=== PATIENT | female | born 1975 | race Caucasian/White ===

== ENCOUNTER 2019-11-26 17:15 | Emergency (ER) | payer OTHER, SELFPAY ==
[2019-11-26] VITALS (11 sets, daily range): BP systolic 114–148; BP diastolic 65–84; PULSE 55–68; RESP 10–19; TEMP 36.8; O2SAT 97–100
--- NOTE | ~2019-11-26 | XR_ITS ---
EXAMINATION: XR chest 1V portable 11/26/2019 18:13 INDICATION: Chest pain PROCEDURE: AP portable chest COMPARISON: No prior studies for comparison. FINDINGS: The lungs are clear. The cardiomediastinal silhouette is within normal limits. There are no pleural effusions. There is no pneumothorax suspected. IMPRESSION: 1: NO ACUTE CARDIOPULMONARY DISEASE. Reviewed, dictated and finalized at location A.
--- NOTE | 2019-11-26 17:32 | PC.NURSE ---
Pt states she has chest pain that is her whole chest and upper back x 1 wk. Pt states she has nausea and trouble taking a deep breath. Pt is A&Ox4. Pt appears in NAD. Pt has call light in reach
--- NOTE | 2019-11-26 17:49 | ECG_ITS ---
Measurements Intervals [place] Rate: 66 P: 66 [place]: 174 QRS: -37 QRSD: 121 T: 54 QT: 402 QTc: 424 Interpretive Statements SINUS RHYTHM LEFT AXIS DEVIATION RIGHT BUNDLE BRANCH BLOCK CONSIDER INFERIOR INFARCT, AGE INDETERMINATE BASELINE ARTIFACT- V6 ABNORMAL ECG Electronically Signed On 11-27-2019 7:43:35 CDT by Luis Miguel Ambriz D.O.
[2019-11-26 18:04] LABS: Basophils Percent Auto 0.4 % (0.2-1.2); Eosinophils Absolute Auto 0.2 K/mm3 (0-0.3); Eosinophils Percent Auto 3.1 % (0-4.4); Hematocrit 40.5 % (37.0-47.0); Hemoglobin 13.2 g/dL (12.0-15.0); Immature Granulocyte Absolute 0.01 K/mm3 (0.00-0.031); Immature Granulocyte Percent A 0.2 % (0-0.5); Lymphocytes Absolute Auto 1.89 K/mm3 (0.9-3.2); Lymphocytes Percent Auto 34.1 % (18.3-44.2); Mean Corpuscular HGB Conc 32.6 g/dl (32-36); Mean Corpuscular Hemoglobin 29.1 pg (26-34); Mean Corpuscular Volume 89.2 fl (80-100); Mean Platelet Volume 10.6 fl (7.4-10.4); Monocytes Absolute Auto 0.6 K/mm3 (0.1-0.6); Monocytes Percent Auto 10.6 % (2.6-8.5); Neutrophils Absolute Auto 2.9 K/mm3 (1.3-6.7); Neutrophils Percent Auto 51.6 % (45.5-73.1); Platelet Count Result 212 k/mm3 (150-375); Red Blood Count 4.54 M/mm3 (4.2-5.4); Red Cell Distribution Width 13.1 % (11.5-14.5); White Blood Count 5.5 K/mm3 (4.5-10.0)
[2019-11-26 18:15] LABS: Prothrombin Time 13.3 Seconds (11.1-14.7)
[2019-11-26 18:16] LABS: Partial Thromboplastin Time 32.6 SECONDS (22.3-36.8)
[2019-11-26] MEDS: ASPIRIN 81 MG CHEWABLE TABLET 324 MG PO (18:16)
[2019-11-26 18:20] LABS: Blood Urea Nitrogen 10 mg/dL (7-17); Calcium 8.6 mg/dL (8.4-10.2); Carbon Dioxide 30 mmol/L (22-30); Chloride 103 mmol/L (98-107); Estimated CRCL calculation 65 ml/min; Estimated Glomerular Filt Rate > 60; Glucose 73 mg/dL (65-105); Potassium 3.6 mmol/L (3.4-5.0); Sodium 139 mmol/L (137-145)
[2019-11-26 18:30] LABS: Troponin I < 0.012 ng/mL (0.000-0.034)
[2019-11-26 18:32] LABS: D Dimer 0.27 ug/mL (<0.48)
--- NOTE | 2019-11-26 18:36 | ED.CHESTPAIN ---
HPI - Chest Pain General Chief Complaint: Chest Pain Stated Complaint: chest pain x 1 week Time Seen by Provider: 11/26/19 17:31 Source: patient Mode of arrival: ambulatory Limitations: no limitations History of Present Illness HPI narrative: 44 yo female who presents for evaluation of diffuse chest pressure. Patient describes constant chest pressure that radiates to right anterior chest when she breaths or moves. She has come to ER today because she states her pain worsened this morning. . She denies fever, chills, nausea, vomiting or sob. She has not tried any medication for her pain. Onset (ago): week(s) Timing of current episode: constant Severity: moderate Related Data Allergies Allergy/AdvReac Type Severity Reaction Status Date / Time ciprofloxacin Allergy Unknown Anaphylactic Verified 11/26/19 17:26 Shock Quinolones Allergy Unknown Anaphylactic Verified 11/26/19 17:26 Shock Review of Systems Review of Systems: Narrative: CONSTITUTIONAL: Denies fever, chills, or sweats. EYES: Denies visual changes, redness, or discharge. ENT: Denies rhinorrhea, congestion, sore throat, or otalgia. CARDIOVASCULAR: Denies , palpitations, or edema. RESPIRATORY: Denies cough or dyspnea. GASTROINTESTINAL: Denies abdominal pain, nausea, vomiting, or diarrhea. GENITOURINARY: Denies dysuria or hematuria. SKIN: Denies rash or itching. MUSCULOSKELETAL: Denies back pain, joint pain, or myalgia. NEUROLOGIC: Denies headache, numbness, or weakness. PSYCHIATRIC: Denies anxiety or depression. PMFSH Past Medical History Medical History (Updated 11/26/19 @ 21:50 by Sandra Caputo MD) ADHD Healthy female Surgical History Surgical History No history of previous surgery Social History Social History (Updated 11/26/19 @ 18:44 by Sandra Caputo MD) Smoking status: Never smoker Alcohol intake: never Gender identity (if verbalized by the patient): Female Exam Narrative: Exam Narrative: GENERAL: Well-appearing, well-nourished, and in no acute distress. HEAD: Normocephalic, atraumatic THROAT:Mucous membranes moist, NECK: Supple, without lymphadenopathy or mass RESPIRATORY: No respiratory distress, Airway patent, Respirations non-labored, Clear to auscultation without rales, rhonchi or wheeze HEART: Regular rate and rhythm. No murmur heard. Normal peripheral pulses. ABDOMEN: Soft, nontender, nondistended, normal active bowel sounds. No masses. No rebound or guarding, No organomegaly. EXTREMITIES: No edema, normal strength with full range of motion. SKIN: Warm, dry, normal color without rash NEURO: Alert and oriented x3. CN 2-12 grossly intact. No focal deficits. PSYCH: Normal mood and affect. Course Reevaluation(s) Reevaluation #1: Patient presented with atypical pain. She reports she feels better. She has negative troponin x 2 and negative d dimer. Her pain is likely GI. Date: 11/26/19 Time: 21:46 Vital Signs Vital signs: Vital Signs Temperature 98.2 F 11/26/19 17:21 Pulse Rate 66 11/26/19 17:21 Respiratory Rate 13 11/26/19 17:21 Blood Pressure 148/84 H 11/26/19 17:21 Pulse Oximetry 100 11/26/19 17:21 Temperature 98.2 F 11/26/19 17:21 Pulse Rate 62 11/26/19 22:01 Respiratory Rate 16 11/26/19 22:01 Blood Pressure 120/72 11/26/19 22:01 Pulse Oximetry 99 11/26/19 22:01 MDM - Chest Pain Differential Diagnosis Differential diagnosis: Likely stable angina, atypical chest pain, costochondritis, chest pain and other (gerd) Lab Data Attestation: I reviewed the patient's lab results. Result diagrams: 11/26/19 17:58 11/26/19 17:58 Labs: Lab Results 11/26/19 11/26/19 11/26/19 Range/Units 17:58 17:58 17:58 WBC 5.5 (4.5-10.0) K/mm3 RBC 4.54 (4.2-5.4) M/mm3 Hgb 13.2 (12.0-15.0) g/dL Hct 40.5 (37.0-47.0) % MCV 89.2 (80-100) fl MCH 29.1 (26-34
[2019-11-26] MEDS: NITROGLYCERIN SL 0.4 MG TABLET SUBLINGUAL (18:46)
--- NOTE | 2019-11-26 19:13 | PC.NURSE ---
Assumed care of patient from LAVELLE Kwan. Patient resting in stretcher in [facility], [facility], call light within reach.
--- NOTE | 2019-11-26 19:16 | PC.NURSE ---
Patient ambulatory to restroom with a steady gait at this time.
[2019-11-26] MEDS: KETOROLAC 30 MG/ML VIAL (*BKC) IV PUSH (19:56)
[2019-11-26 21:08] LABS: Troponin I < 0.012 ng/mL (0.000-0.034)
== END 2019-11-26 22:02 | disposition home or self-care (01) ==
PROVIDERS: Emergency Provider General Practice
DX: R07.89 Other chest pain (principal); I45.10 Unspecified right bundle-branch block; R94.31 Abnormal electrocardiogram [ECG] [EKG]
CPT/HCPCS: 36415; 71045; 80048; 84484; 85025; 85380; 85610; 85730; 93005; 96374; 99284; A9270; J1885

== ENCOUNTER 2022-03-20 12:34 | Emergency (ER) | payer OTHER, SELFPAY ==
--- NOTE | ~2022-03-20 | XR_ITS ---
EXAMINATION: XR chest 2V DATE: 03/20/2022 13:19 INDICATION: Shortness of breath. Bloating. TECHNIQUE: Frontal and lateral views of the chest were obtained. COMPARISON: Chest single view 11/26/2019 FINDINGS: There is no pneumonia, pleural effusion, pneumothorax. The heart size is normal. IMPRESSION: 1. No acute cardiopulmonary disease. Reviewed, dictated and finalized at location A.
[2022-03-20 12:37] VITALS: BP 146/84; PULSE 75; RESP 18; TEMP 37.1; O2SAT 100
--- NOTE | 2022-03-20 12:42 | ECG_ITS ---
Measurements Intervals [place] Rate: 84 P: 60 [place]: 128 QRS: -3 QRSD: 99 T: 61 QT: 360 QTc: 427 Interpretive Statements SINUS RHYTHM INCOMPLETE RIGHT VENTRICULAR CONDUCTION DELAY BORDERLINE ECG COMPARED TO ECG 11/26/2019 17:22:10 CRITERIA FOR RIGHT BUNDLE-BRANCH BLOCK AND INFERIOR INFARCTION ON APPRECIATED Electronically Signed On 03-20-2022 13:09:27 CDT by Leroy Fry M.D.
[2022-03-20 13:03] LABS: Basophils Percent Auto 0.5 % (0.2-1.2); Eosinophils Absolute Auto 0.1 K/mm3 (0-0.3); Eosinophils Percent Auto 1.5 % (0-4.4); Hematocrit 43.2 % (37.0-47.0); Hemoglobin 14.5 g/dL (12.0-15.0); Immature Granulocyte Absolute 0.01 K/mm3 (0.00-0.031); Immature Granulocyte Percent A 0.2 % (0-0.5); Lymphocytes Absolute Auto 1.56 K/mm3 (0.9-3.2); Lymphocytes Percent Auto 26.9 % (18.3-44.2); Mean Corpuscular HGB Conc 33.6 g/dl (32-36); Mean Corpuscular Hemoglobin 29.5 pg (26-34); Mean Corpuscular Volume 87.8 fl (80-100); Mean Platelet Volume 10.1 fl (7.4-10.4); Monocytes Absolute Auto 0.6 K/mm3 (0.1-0.6); Monocytes Percent Auto 9.5 % (2.6-8.5); Neutrophils Absolute Auto 3.6 K/mm3 (1.3-6.7); Neutrophils Percent Auto 61.4 % (45.5-73.1); Platelet Count Result 279 k/mm3 (150-375); Red Blood Count 4.92 M/mm3 (4.2-5.4); Red Cell Distribution Width 12.4 % (11.5-14.5); White Blood Count 5.8 K/mm3 (4.5-10.0)
[2022-03-20 13:13] LABS: Alanine Aminotransferase 15 U/L (6-35); Albumin Level 4.6 g/dL (3.5-5.1); Alkaline Phosphatase 58 U/L (38-126); Anion Gap 12 mmol/L (8-16); Aspartate Amino Transferase 25 U/L (14-36); Bilirubin,Total 0.5 mg/dL (0.2-1.3); Blood Urea Nitrogen 18 mg/dL (7-17); Calcium 8.8 mg/dL (8.4-10.2); Carbon Dioxide 23 mmol/L (22-30); Chloride 104 mmol/L (98-107); Estimated CRCL calculation 53 ml/min; Estimated Glomerular Filt Rate 53; Glucose 88 mg/dL (65-110); Potassium 4.2 mmol/L (3.4-5.0); Sodium 139 mmol/L (137-145)
[2022-03-20 16:08] VITALS: BP 117/68; PULSE 73; TEMP 37.1; O2SAT 100
[2022-03-20] MEDS: BELLADONNA ALK/PHENOB ELIX 10 ML, MAG HYDROX/ALUMINUM HYD/SIMETH 30 ML, LIDOCAINE HCL 2... PO (19:43)
--- NOTE | 2022-03-20 20:04 | ED.GENADULT ---
HPI - General Adult General Chief complaint: Unspecified Stated complaint: shortness of breath x several days Time Seen by Provider: 03/20/22 19:08 History of Present Illness HPI narrative: Patient is a 46-year-old female who presents ER with epigastric fullness and shortness of breath. Reports she has had fullness in her epigastrium for about a month but is worse over the last couple days. Makes it feel like she has difficulty getting a full deep breath. No exertional fatigue. Denies fevers or chills or sweats. No chest pain or chest pressure. Denies nausea/vomiting. No poor taste in the back of her mouth. She has not tried any acid reflux medication. She is without constipation or diarrhea. Related Data Allergies Allergy/AdvReac Type Severity Reaction Status Date / Time ciprofloxacin Allergy Unknown Anaphylactic Verified 03/20/22 12:35 Shock Quinolones Allergy Unknown Anaphylactic Verified 03/20/22 12:35 Shock Review of Systems Review of Systems: All systems reviewed & are unremarkable except as noted in HPI and below Constitutional: Constitutional: Denies chills, Denies fatigue and Denies fever(s) ENT: Denies nasal congestion and Denies sore throat Cardiovascular: Cardiovascular: Denies chest pain, Denies rapid heart rate and Denies palpitations Respiratory: Respiratory: Denies cough and Denies dyspnea Gastrointestinal: Gastrointestinal: Denies abdominal pain, Denies belching, Reports bloating, Denies nausea and Denies vomiting Genitourinary: Genitourinary: Denies nocturia, Denies dysuria and Denies flank pain PMFSH Past Medical History Medical History (Updated 03/20/22 @ 21:48 by Tony Renner MD) ADHD Healthy female Surgical History Surgical History No history of previous surgery Social History Social History (Updated 11/26/19 @ 18:44 by Sandra Caputo MD) Smoking status: Never smoker Alcohol intake: never Gender identity (if verbalized by the patient): Female Exam Narrative: GENERAL: Well-appearing, well-nourished, and in no acute distress. HEAD: Normocephalic, atraumatic. EYES: PERRL and EOMI. CHEST: Clear to auscultation. No respiratory distress. HEART: Regular rate and rhythm. Normal peripheral pulses. ABDOMEN: Soft, nontender, nondistended. EXTREMITIES: Normal range of motion. No edema. SKIN: Warm, dry, no rash. NEURO: Alert and oriented x3. PSYCH: Normal mood and affect. Course Course Emergency Course: Patient resting comfortably. Informed of results. Will discharge on Protonix as patient may be suffering from reflux or GI ulcer. D-dimer negative. LFTs and lipase normal. Chest x-ray without infiltrate. Vital Signs Vital signs: Vital Signs Temperature 98.7 F 03/20/22 12:37 Pulse Rate 75 03/20/22 12:37 Respiratory Rate 18 03/20/22 12:37 Blood Pressure 146/84 H 03/20/22 12:37 Pulse Oximetry 100 03/20/22 12:37 Oxygen Delivery Room Air 03/20/22 12:37 Temperature 98.8 F 03/20/22 16:08 Pulse Rate 73 03/20/22 16:08 Respiratory Rate 18 03/20/22 12:37 Blood Pressure 117/68 03/20/22 16:08 Pulse Oximetry 100 03/20/22 16:08 Oxygen Delivery Room Air 03/20/22 12:37 Medical Decision Making Vital Signs Vital Signs: Vital Signs Temperature 98.7 F 03/20/22 12:37 Pulse Rate 75 03/20/22 12:37 Respiratory Rate 18 03/20/22 12:37 Blood Pressure 146/84 H 03/20/22 12:37 Pulse Oximetry 100 03/20/22 12:37 Oxygen Delivery Room Air 03/20/22 12:37 Temperature 98.8 F 03/20/22 16:08 Pulse Rate 73 03/20/22 16:08 Respiratory Rate 18 03/20/22 12:37 Blood Pressure 117/68 03/20/22 16:08 Pulse Oximetry 100 03/20/22 16:08 Oxygen Delivery Room Air 03/20/22 12:37 Lab Data Result diagrams: 03/20/22 12:47 03/20/22 12:47 Labs: Lab Results 03/20/22 03/20/22 03/20/22 Range/Units 12:47 12:47 20:03
[2022-03-20 20:31] LABS: Lipase 81 U/L (23-300)
[2022-03-20 20:46] LABS: D Dimer < 0.27 ug/mL (<0.48)
[2022-03-20 21:55] VITALS: BP 136/84; PULSE 65; RESP 18; O2SAT 98
== END 2022-03-20 21:55 | disposition home or self-care (01) ==
PROVIDERS: Emergency Medicine; Emergency Provider Emergency Medicine
DX: R10.13 Epigastric pain (principal); F90.9 Attention-deficit hyperactivity disorder, unspecified type
CPT/HCPCS: 36415; 71046; 80053; 81025; 83690; 85025; 85380; 93005; 99283; A9270

== ENCOUNTER 2022-03-21 23:53 | Emergency (ER) | payer OTHER, SELFPAY ==
--- NOTE | ~2022-03-21 | CT_ITS ---
EXAMINATION: CT abdomen pelvis w con DATE: 03/22/2022 01:55 INDICATION: Epigastric abdominal pain. TECHNIQUE: Computed tomography (CT) of the abdomen and pelvis was performed with 100 mL Omnipaque 350 intravenous contrast. Automated exposure control and iterative reconstruction technique were employe d. The dose-length product was 417.74 mGy-cm. COMPARISON: CT abdomen and pelvis 05/16/2006 FINDINGS: The visualized portions of the lung bases are clear without pneumonia or pleural effusion. The heart size is normal. No pericardial effusion. The liver, gallbladder, spleen, pancreas, adrenal glands, and kidneys are normal. There are no dilated loops of bowel. The appendix is normal. There ar e no pathologically enlarged lymph nodes. There is no free intraperitoneal fluid. There is mild lumba r spondylosis. IMPRESSION: 1. No etiology for the patient's symptoms. Reviewed, dictated and finalized at location A.
[2022-03-21 23:51] VITALS: BP 142/72; PULSE 93; RESP 20; TEMP 36.6; O2SAT 100
[2022-03-22] VITALS (10 sets, daily range): BP systolic 99–135; BP diastolic 47–82; PULSE 72–89; RESP 10–21; O2SAT 96–100
[2022-03-22] MEDS: LORazepam INJ (*CRX) 2 MG/ML VIAL 0.5 MG IV PUSH (00:14)
--- NOTE | 2022-03-22 00:15 | PC.NURSE ---
When attempting to draw lab work, pt questioned the lab work since she had lab work drawn when she was here the day prior. Dr. Renner will be made aware of the pts questions.
[2022-03-22 00:55] LABS: Basophils Percent Auto 0.3 % (0.2-1.2); Eosinophils Percent Auto 0.2 % (0-4.4); Hematocrit 40.1 % (37.0-47.0); Hemoglobin 13.5 g/dL (12.0-15.0); Immature Granulocyte Absolute 0.03 K/mm3 (0.00-0.031); Immature Granulocyte Percent A 0.3 % (0-0.5); Lymphocytes Absolute Auto 0.97 K/mm3 (0.9-3.2); Mean Corpuscular HGB Conc 33.7 g/dl (32-36); Mean Corpuscular Hemoglobin 29.7 pg (26-34); Mean Corpuscular Volume 88.3 fl (80-100); Mean Platelet Volume 9.9 fl (7.4-10.4); Monocytes Absolute Auto 0.6 K/mm3 (0.1-0.6); Monocytes Percent Auto 6.9 % (2.6-8.5); Neutrophils Absolute Auto 7.1 K/mm3 (1.3-6.7); Neutrophils Percent Auto 81.3 % (45.5-73.1); Platelet Count Result 225 k/mm3 (150-375); Red Blood Count 4.54 M/mm3 (4.2-5.4); White Blood Count 8.8 K/mm3 (4.5-10.0)
[2022-03-22 01:08] LABS: Alanine Aminotransferase 17 U/L (6-35); Albumin Level 4.4 g/dL (3.5-5.1); Alkaline Phosphatase 66 U/L (38-126); Anion Gap 13 mmol/L (8-16); Aspartate Amino Transferase 25 U/L (14-36); Bilirubin,Total 0.4 mg/dL (0.2-1.3); Blood Urea Nitrogen 17 mg/dL (7-17); Calcium 8.9 mg/dL (8.4-10.2); Carbon Dioxide 20 mmol/L (22-30); Chloride 103 mmol/L (98-107); Estimated CRCL calculation 63 ml/min; Estimated Glomerular Filt Rate > 60; Glucose 111 mg/dL (65-110); Lipase 105 U/L (23-300); Potassium 3.7 mmol/L (3.4-5.0); Sodium 136 mmol/L (137-145)
--- NOTE | 2022-03-22 01:23 | ED.ABDPAIN ---
HPI - Abdominal Pain General Chief Complaint: Abdominal Pain Stated Complaint: ABD CRAMPING Time Seen by Provider: 03/21/22 23:53 History of Present Illness HPI narrative: Patient is a 46-year-old female who presents ER with abdominal cramping. Epigastrium. Sudden onset tonight. Makes her feel full and have difficulty getting a full breath. Making her anxious. She is breathing fast and having spasm in her hands. No fevers or chills or sweats. Related Data Home Medications Medication Instructions Recorded Confirmed dextroamphetamine-amphetamine ER PO 03/22/22 20 mg 24hr capsule,extend release Allergies Allergy/AdvReac Type Severity Reaction Status Date / Time ciprofloxacin Allergy Unknown Anaphylactic Verified 03/22/22 00:34 Shock Quinolones Allergy Unknown Anaphylactic Verified 03/22/22 00:34 Shock Review of Systems Review of Systems: All systems reviewed & are unremarkable except as noted in HPI and below Constitutional: Constitutional: Denies chills and Denies fever(s) ENT: Denies nasal congestion and Denies sore throat Cardiovascular: Cardiovascular: Denies chest pain, Denies rapid heart rate and Denies radiating jaw, neck or arm pain Respiratory: Respiratory: Denies cough and Reports dyspnea Gastrointestinal: Gastrointestinal: Reports abdominal pain, Denies diarrhea, Denies nausea and Denies vomiting Psychiatric: Psychiatric: Reports anxiety PMFSH Past Medical History Medical History (Updated 03/22/22 @ 05:56 by Tony Renner MD) ADHD Healthy female Surgical History Surgical History No history of previous surgery Social History Social History (Updated 11/26/19 @ 18:44 by Sandra Caputo MD) Smoking status: Never smoker Alcohol intake: never Gender identity (if verbalized by the patient): Female Exam Narrative: GENERAL: Mucous-appearing, well-nourished, and in no acute distress. HEAD: Normocephalic, atraumatic. EYES: PERRL and EOMI. ENT: Mucous membranes moist. CHEST: Clear to auscultation. No respiratory distress. HEART: Regular rate and rhythm. Normal peripheral pulses. ABDOMEN: Soft, nontender, nondistended. EXTREMITIES: Normal range of motion. No edema. SKIN: Warm, dry, no rash. NEURO: Alert and oriented x3. PSYCH: Anxious mood and affect with normal thought content. Course Course Emergency Course: Patient resting comfortably. Informed of results. Symptoms improved with Ativan. Patient does have some mild to moderate stool on the CT scan. Discharge home with stool softener. Vital Signs Vital signs: Vital Signs Temperature 97.9 F 03/21/22 23:51 Pulse Rate 93 03/21/22 23:51 Respiratory Rate 20 03/21/22 23:51 Blood Pressure 142/72 H 03/21/22 23:51 Pulse Oximetry 100 03/21/22 23:51 Oxygen Delivery Room Air 03/21/22 23:51 Temperature 97.9 F 03/21/22 23:51 Pulse Rate 77 03/22/22 05:00 Respiratory Rate 13 03/22/22 05:00 Blood Pressure 120/62 03/22/22 05:00 Pulse Oximetry 100 03/22/22 05:00 Oxygen Delivery Room Air 03/21/22 23:51 MDM - Abdominal Pain Lab Data Result diagrams: 03/22/22 00:50 03/22/22 00:50 Labs: Lab Results 03/22/22 03/22/22 Range/Units 00:50 00:50 WBC 8.8 (4.5-10.0) K/mm3 RBC 4.54 (4.2-5.4) M/mm3 Hgb 13.5 (12.0-15.0) g/dL Hct 40.1 (37.0-47.0) % MCV 88.3 (80-100) fl MCH 29.7 (26-34) pg MCHC 33.7 (32-36) g/dl RDW 12.0 (11.5-14.5) % Plt Count 225 (150-375) k/mm3 MPV 9.9 (7.4-10.4) fl Immature Gran % (Auto) 0.3 (0-0.5) % Neut % (Auto) 81.3 H (45.5-73.1) % Lymph % (Auto) 11.0 L (18.3-44.2) % [place] % (Auto) 6.9 (2.6-8.5) % Eos % (Auto) 0.2 (0-4.4) % Baso % (Auto) 0.3 (0.2-1.2) % Lymph # (Auto) 0.97 (0.9-3.2) K/mm3 [place] # (Auto) 0.6 (0.1-0.6) K/mm3 Eos # (Auto) 0.0 (0-0.3) K/mm3 Baso # (Auto) 0.0 (0.0-0.1) K/
== END 2022-03-22 06:07 | disposition home or self-care (01) ==
PROVIDERS: Emergency Provider Emergency Medicine
DX: F41.0 Panic disorder [episodic paroxysmal anxiety] (principal); K59.00 Constipation, unspecified; F90.9 Attention-deficit hyperactivity disorder, unspecified type
CPT/HCPCS: 36415; 74177; 80053; 83690; 85025; 96374; 99284; J2060; Q9967

== ENCOUNTER 2022-10-22 18:30 | Emergency (ER) | payer OTHER, SELFPAY ==
[2022-10-22 18:33] VITALS: BP 181/92; PULSE 65; RESP 16; TEMP 36.5; O2SAT 100
--- NOTE | 2022-10-22 20:49 | PC.NURSE ---
called from waiting room for placement in room, no answer
== END 2022-10-22 21:39 | disposition left against medical advice (07) ==
LOC: ANHED 21:31
PROVIDERS: PCP Internal Medicine
DX: K08.89 Other specified disorders of teeth and supporting structures (principal)
CPT/HCPCS: 99199

== ENCOUNTER 2022-11-02 11:42 | Emergency (ER) | payer OTHER, SELFPAY ==
[2022-11-02] VITALS (7 sets, daily range): BP systolic 106–131; BP diastolic 68–82; PULSE 60–70; RESP 17–18; TEMP 36.8; O2SAT 100
--- NOTE | ~2022-11-02 | XR_ITS ---
EXAMINATION: XR chest 2V 11/02/2022 12:00 INDICATION: Right-sided chest pain PROCEDURE: PA and lateral views the chest COMPARISON: 03/20/2022 FINDINGS: The lungs are clear. The cardiomediastinal silhouette is within normal limits. There are no pleural effusions. There is no pneumothorax suspected. IMPRESSION: 1: NO ACUTE CARDIOPULMONARY DISEASE. Reviewed, dictated and finalized at location A.
--- NOTE | 2022-11-02 11:44 | ECG_ITS ---
Measurements Intervals [place] Rate: 71 P: 60 [place]: 144 QRS: 23 QRSD: 104 T: 59 QT: 395 QTc: 430 Interpretive Statements SINUS RHYTHM INCOMPLETE RIGHT BUNDLE BRANCH BLOCK BASELINE ARTIFACT- I, II, III BORDERLINE ECG COMPARED TO ECG 03/20/2022 12:51:47 NO SIGNIFICANT CHANGES Electronically Signed On 11-02-2022 21:31:21 CDT by Luis Miguel Ambriz D.O.
[2022-11-02 12:02] LABS: Basophils Percent Auto 0.4 % (0.2-1.2); Eosinophils Absolute Auto 0.2 K/mm3 (0-0.3); Eosinophils Percent Auto 2.2 % (0-4.4); Hematocrit 39.9 % (37.0-47.0); Hemoglobin 13.3 g/dL (12.0-15.0); Immature Granulocyte Absolute 0.01 K/mm3 (0.00-0.031); Immature Granulocyte Percent A 0.1 % (0-0.5); Lymphocytes Absolute Auto 2.51 K/mm3 (0.9-3.2); Lymphocytes Percent Auto 36.8 % (18.3-44.2); Mean Corpuscular HGB Conc 33.3 g/dl (32-36); Mean Corpuscular Hemoglobin 30.2 pg (26-34); Mean Corpuscular Volume 90.7 fl (80-100); Mean Platelet Volume 9.9 fl (7.4-10.4); Monocytes Absolute Auto 0.7 K/mm3 (0.1-0.6); Monocytes Percent Auto 10.6 % (2.6-8.5); Neutrophils Absolute Auto 3.4 K/mm3 (1.3-6.7); Neutrophils Percent Auto 49.9 % (45.5-73.1); Platelet Count Result 278 k/mm3 (150-375); Red Cell Distribution Width 12.3 % (11.5-14.5); White Blood Count 6.8 K/mm3 (4.5-10.0)
[2022-11-02 12:19] LABS: Alanine Aminotransferase 17 U/L (6-35); Albumin Level 4.2 g/dL (3.5-5.1); Alkaline Phosphatase 60 U/L (38-126); Anion Gap 4 mmol/L (8-16); Aspartate Amino Transferase 26 U/L (14-36); Bilirubin,Total 0.3 mg/dL (0.2-1.3); Blood Urea Nitrogen 8 mg/dL (7-17); Calcium 8.4 mg/dL (8.4-10.2); Carbon Dioxide 29 mmol/L (22-30); Chloride 106 mmol/L (98-107); Estimated CRCL calculation 70 ml/min; Estimated Glomerular Filt Rate > 60; Glucose 89 mg/dL (65-110); Lipase 83 U/L (23-300); Sodium 139 mmol/L (137-145)
[2022-11-02 12:29] LABS: Troponin I < 0.012 ng/mL (0.000-0.034)
[2022-11-02 12:58] LABS: Prothrombin Time 12.7 Seconds (11.1-14.7)
[2022-11-02 12:59] LABS: Partial Thromboplastin Time 31.8 SECONDS (22.3-36.8)
[2022-11-02] MEDS: SODIUM CHLORIDE 0.9% IV 1,000 ML 999 ML IV CONT (13:11)
[2022-11-02] MEDS: KETOROLAC 15 MG/ML VIAL (*BKC) IV PUSH (13:11)
[2022-11-02] MEDS: CYCLOBENZAPRINE HCL 5 MG TABLET 10 MG PO (13:11)
--- NOTE | 2022-11-02 13:14 | ED.CHESTPAIN ---
HPI - Chest Pain General Chief Complaint: Chest Pain Stated Complaint: Chest pain/back pain Time Seen by Provider: 11/02/22 12:09 History of Present Illness HPI narrative: Patient is a 47-year-old female presenting with chest pain. Patient states that starting around 4 AM this morning she developed right-sided chest pain that is worse with deep breaths and positional changes. Patient states that if she stays completely still she has no pain. She denies any left-sided chest pain. No shortness of breath, cough, lightheadedness, palpitations. Denies abdominal pain, nausea or vomiting, leg swelling, fevers or chills. Related Data Home Medications Medication Instructions Recorded Confirmed dextroamphetamine-amphetamine ER PO 03/22/22 20 mg 24hr capsule,extend release Allergies Allergy/AdvReac Type Severity Reaction Status Date / Time ciprofloxacin Allergy Unknown Anaphylactic Verified 11/02/22 12:29 Shock Quinolones Allergy Unknown Anaphylactic Verified 11/02/22 12:29 Shock Review of Systems Review of Systems: All systems reviewed & are unremarkable except as noted in HPI and below PMFSH Past Medical History Medical History ADHD Healthy female Surgical History Surgical History No history of previous surgery Social History Social History Smoking status: Never smoker Alcohol intake: never Gender identity (if verbalized by the patient): Female Exam Narrative: GENERAL: Well-appearing, well-nourished, and in no acute distress. HEAD: Normocephalic, atraumatic. EYES: PERRLA and EOMI. ENT: Nares clear, no rhinorrhea or epistaxis. Mucous membranes moist. NECK: Supple. CHEST: Clear to auscultation. No respiratory distress. HEART: Regular rate and rhythm. No murmur heard. Normal peripheral pulses. ABDOMEN: Soft, nontender, nondistended EXTREMITIES: Normal range of motion. No edema. SKIN: Warm, dry, no rash. NEURO: No focal deficits. Alert and oriented x3. PSYCH: Normal mood and affect. Course Vital Signs Vital signs: Vital Signs Temperature 98.3 F 11/02/22 11:45 Pulse Rate 70 11/02/22 11:45 Respiratory Rate 17 11/02/22 11:45 Blood Pressure 131/69 11/02/22 11:45 Pulse Oximetry 100 11/02/22 11:45 Oxygen Delivery Room Air 11/02/22 11:45 Temperature 98.3 F 11/02/22 11:45 Pulse Rate 62 11/02/22 16:08 Respiratory Rate 18 11/02/22 16:08 Blood Pressure 106/82 11/02/22 16:08 Pulse Oximetry 100 11/02/22 16:08 Oxygen Delivery Room Air 11/02/22 12:26 MDM - Chest Pain MDM Narrative Medical decision making narrative: Patient is a 47-year-old female presenting with positional and pleuritic right-sided chest pain for the last 8 hours. Vitals are within normal limits. Patient is well-appearing and in no acute distress. EKG per my interpretation shows normal sinus rhythm, normal axis, incomplete right bundle, no ST elevations or depressions. Appears similar to prior. Blood work is unremarkable. Troponin is undetectable. Chest x-ray shows no acute abnormalities. No pneumothorax or focal consolidations. Added dimer. Will treat with IV Tylenol, Toradol, Flexeril. D-dimer is within normal limits. 3-hour troponin remains undetectable. Suspect musculoskeletal pain given positional and reproducible components. Discussed appropriate supportive care. Advised primary care follow-up. Patient voiced understanding and is agreeable with plan. Discussed appropriate return precautions. Discharged in stable condition. Differential Diagnosis Differential diagnosis: Likely pneumothorax, atypical chest pain, st elevation myocardial infarction, costochondritis and chest pain Lab Data 11/02/22 11:53 11/02/22 11:53 Labs: Lab Results 11/02/22 11/02/22 11/02/22 Range/U
[2022-11-02 13:59] LABS: D Dimer 0.31 ug/mL (<0.48)
[2022-11-02 15:33] LABS: Troponin I < 0.012 ng/mL (0.000-0.034)
== END 2022-11-02 16:10 | disposition home or self-care (01) ==
PROVIDERS: Emergency Medicine; Emergency Provider Emergency Medicine
DX: R07.89 Other chest pain (principal); F90.9 Attention-deficit hyperactivity disorder, unspecified type
CPT/HCPCS: 36415; 71046; 80053; 83690; 84484; 85025; 85380; 85610; 85730; 93005; 96361; 96365; 96375; 99284; A9270; J0131; J1885; J7030

== ENCOUNTER 2025-06-02 11:49 | Emergency (ER) | payer OTHER, SELFPAY ==
--- NOTE | ~2025-06-02 | XR_ITS ---
EXAMINATION: XR chest 2V, 06/02/2025 13:08 CDT HISTORY: CHEST PAIN COMPARISON: No comparisons available. Technique: 2 views obtained. Findings: The lungs are clear, no effusion. No pneumothorax. Heart is normal size. Mediastinal and hilar contours are within normal limits. Bony thorax no acute abnormality. Impression: No acute cardiopulmonary abnormality. Reviewed, dictated and finalized at location P. Impression: No acute cardiopulmonary abnormality.
--- NOTE | ~2025-06-02 | CT_ITS ---
EXAMINATION: CT cervical spine wo con COMPARISON: None HISTORY: neck pain TECHNIQUE: Axial images were obtained through the spine without IV contrast. Coronal, sagittal reconstruction images were obtained from the axial views. CT scan performed using dose optimization techniques including the following automated exposure control; adjustment of mA and/or kV; use of iterative reconstruction technique. Automatic exposure control was used to reduce radiation dose. Permanent radiation dose record is archived to PACS. FINDINGS: Grade 1 anterolisthesis of C3 on C4 and C4 on C5, no fracture. Moderate loss of disc height at C5-6 and C6-7 with moderate canal and foraminal stenosis. Soft tissues unremarkable. Impression: No acute abnormality. Reviewed, dictated and finalized at location P. Impression: No acute abnormality.
--- NOTE | 2025-06-02 11:52 | ECG_ITS ---
Test Date: 2025-06-02 12:18:39 Measurements Intervals [place] Rate: 82 P: 77 [place]: 157 QRS: -22 QRSD: 109 T: 35 QT: 360 QTc: 421 Interpretive Statements SINUS RHYTHM INCOMPLETE RIGHT BUNDLE BRANCH BLOCK INFERIOR INFARCT, AGE INDETERMINATE ABNORMAL ECG No previous ECG available for comparison Electronically Signed On 06-02-2025 12:59:33 CDT by Luis Miguel Ambriz D.O.
[2025-06-02 12:12] VITALS: BP 157/86; PULSE 86; RESP 15; TEMP 36.8; O2SAT 100
[2025-06-02 12:33] LABS: Hematocrit 42.4 % (37.0-47.0); Hemoglobin 14.0 g/dL (12.0-15.0); Immature Granulocyte Percent A 0.4 % (0-0.5); Lymphocytes Absolute Auto 1.63 K/mm3 (0.9-3.2); Mean Corpuscular HGB Conc 33.0 g/dl (32-36); Mean Corpuscular Hemoglobin 29.8 pg (26-34); Mean Corpuscular Volume 90.2 fl (80-100); Nucleated Red Blood Cells Absolute Auto 0.000 K/mm3 (0.0-0.012); Nucleated Red Blood Cells Perc 0.0 % (0.0-0.2); Platelet Count Result 229 k/mm3 (150-375); Red Blood Count 4.70 M/mm3 (4.2-5.4); White Blood Count 5.4 K/mm3 (4.5-10.0)
[2025-06-02 12:44] LABS: Alanine Aminotransferase 14 U/L (6-35); Albumin Level 4.2 g/dL (3.5-5.1); Alkaline Phosphatase 56 U/L (38-126); Anion Gap 5 mmol/L (4-12); Aspartate Amino Transferase 22 U/L (14-36); Bilirubin,Total 0.3 mg/dL (0.2-1.3); Blood Urea Nitrogen 12 mg/dL (7-17); Calcium 8.9 mg/dL (8.4-10.2); Carbon Dioxide 30 mmol/L (22-30); Chloride 104 mmol/L (98-107); Estimated CRCL calculation 60 ml/min; Estimated Glomerular Filt Rate > 60; Glucose 76 mg/dL (65-110); Lipase 69 U/L (23-300); Potassium 3.9 mmol/L (3.4-5.0); Sodium 139 mmol/L (137-145); Total Protein 7.4 g/dL (6.3-8.2)
[2025-06-02 12:48] LABS: INR 1.0; Prothrombin Time 13.0 Seconds (11.1-14.7)
[2025-06-02 12:49] LABS: Partial Thromboplastin Time 30.8 Seconds (22.3-36.8)
[2025-06-02 12:55] LABS: Troponin I < 0.012 ng/mL (0.000-0.034)
--- NOTE | 2025-06-02 13:46 | ED_ITS ---
HPI - Chest Pain General Chief Complaint: Chest Pain <Aimee Nichole PA-C - Last Filed: 06/02/25 19:21> Stated Complaint: CHEST PAIN X1D <Aimee Nichole PA-C - Last Filed: 06/02/25 19:21> Time Seen by Provider: 06/02/25 13:46 <Aimee Nichole PA-C - Last Filed: 06/02/25 19:21> Focused HPI: This is a 49 year old female that presents to the ER for left sided chest pain. Ongoing since last night. Worse with breathing, movement. Also reports neck pain, which is chronic. Reports this has been constant for about a year. Reports she has been seeing a chiropractor for this. Denies fever, cough. Reports some shortness of breath. Reports she feels fatigued. GENERAL: Well-appearing, well-nourished, and in no acute distress. HEAD: Normocephalic, atraumatic. CHEST: Clear to auscultation. ?No respiratory distress. HEART: Regular rate and rhythm.? NEURO: ?Alert and oriented x3. Patient screened in triage and initial orders placed.? ?Additional care and disposition to be based upon?diagnostic testing and treatment. <Aimee Nichole PA-C - Last Filed: 06/02/25 19:21> Focused HPI: This is a 49 year old female that presents to the ER for left sided chest pain. Ongoing since last night. Worse with breathing, movement. Also reports neck pain, which is chronic. Reports this has been constant for about a year. Reports she has been seeing a chiropractor for this. Denies fever, cough. Reports some shortness of breath. Reports she feels fatigued. GENERAL: Well-appearing, well-nourished, and in no acute distress. HEAD: Normocephalic, atraumatic. CHEST: Clear to auscultation. ?No respiratory distress. HEART: Regular rate and rhythm.? NEURO: ?Alert and oriented x3. Patient screened in triage and initial orders placed.? ?Additional care and disposition to be based upon?diagnostic testing and treatment. <Destinee Bruno PA-C - Last Filed: 06/02/25 18:03> Source: patient <Destinee Bruno PA-C - Last Filed: 06/02/25 18:03> Mode of arrival: ambulatory <Destinee Bruno PA-C - Last Filed: 06/02/25 18:03> Limitations: no limitations <Destinee Bruno PA-C - Last Filed: 06/02/25 18:03> History of Present Illness HPI narrative: Agree with above HPI. Reports SOB is also chronic for her. Denies history of hypertension, hyperlipidemia, diabetes, smoking, family history of heart disease. <Destinee Bruno PA-C - Last Filed: 06/02/25 18:03> Related Data Home Medications: Home Medications ?Medication ?Instructions ?Recorded ?Confirmed ?Last Taken ?Type dextroamphetamine-amphetamine ER PO 03/22/22 Unknown History 20 mg 24hr capsule,extend release <Aimee Nichole PA-C - Last Filed: 06/02/25 19:21> Allergies/Adverse Reactions: Allergies Allergy/AdvReac Type Severity Reaction Status Date / Time ciprofloxacin Allergy Unknown Anaphylactic Verified 06/02/25 12:15 Shock Quinolones Allergy Unknown Anaphylactic Verified 06/02/25 12:15 Shock <Aimee Nichole PA-C - Last Filed: 06/02/25 19:21> Review of Systems 2 Review of Systems: All systems reviewed & are unremarkable except as noted in HPI. <Destinee Bruno PA-C - Last Filed: 06/02/25 18:03> All systems reviewed & are unremarkable except as noted in HPI and below < Destinee Bruno PA-C - Last Filed: 06/02/25 18:03> [facility] Past Medical History Medical History: Medical History ADHD Healthy female <Aimee Nichole PA-C - Last Filed: 06/02/25 19:21> Surgical History Surgical History: Surgical History No history of previous surgery <Aimee Nichole PA-C - Last Filed: 06/02/25 19:21> Social History Social History: Social History Smoking status: Never smoker Alcohol intake: never Gender identity (if verbalized by the patient): Female <Aimee Nichole PA-C - Last Filed: 06/02/25 19:21> Exam 2 Narrative: GENERAL: Well appearing, well-nourished, non-toxic, in no acute distress. HEAD: Normocephalic, atraumatic. RESPIRATORY: Airway patent, respirations nonlabored. Clear to auscultation bilaterally, no rales, rhonchi, wheezing. CARDIOVASCULAR: Regular rate and rhythm without murmurs, rubs, or gallops. MUSCULOSKELETAL: Moves all extremities. No gross deformities. Mild TTP over L anterior chest wall, beneath L breast. No palpable masses SKIN: Warm, dry, normal color. NEURO: A&O X3. Speech clear. Cranial nerves II-XII grossly intact. Steady gait. No ataxic movements. PSYCHIATRIC: Appropriate mood and affect. Normal interaction. <Destinee Bruno PA-C - Last Filed: 06/02/25 18:03> Course Vital Signs Vital signs: Vital Signs Temperature 98.2 F 06/02/25 12:12 Pulse Rate 86 06/02/25 12:12 Respiratory Rate 15 06/02/25 12:12 Blood Pressure 157/86 H 06/02/25 12:12 Pulse Oximetry 100 06/02/25 12:12 Oxygen Delivery Room Air 06/02/25 12:12 Temperature 98.2 F 06/02/25 12:12 Pulse Rate 66 06/02/25 16:42 Respiratory Rate 13 06/02/25 16:42 Blood Pressure 123/53 L 06/02/25 16:42 Pulse Oximetry 98 06/02/25 16:42 Oxygen Delivery Room Air 06/02/25 12:12 <Aimee Nichole PA-C - Last Filed: 06/02/25 19:21> Vital Signs Temperature 98.2 F 06/02/25 12:12 Pulse Rate 86 06/02/25 12:12 Respiratory Rate 15 06/02/25 12:12 Blood Pressure 157/86 H 06/02/25 12:12 Pulse Oximetry 100 06/02/25 12:12 Oxygen Delivery Room Air 06/02/25 12:12 Temperature 98.2 F 06/02/25 12:12 Pulse Rate 66 06/02/25 16:42 Respiratory Rate 13 06/02/25 16:42 Blood Pressure 123/53 L 06/02/25 16:42 Pulse Oximetry 98 06/02/25 16:42 Oxygen Delivery Room Air 06/02/25 12:12 <Destinee Bruno PA-C - Last Filed: 06/02/25 18:03> MDM - Chest Pain MDM Narrative Medical decision making narrative: Reports left-sided chest pain since last night EKG with sinus rhythm, incomplete right bundle. Appears chronic, consistent with previous records Baseline troponin undetectable Chest x-ray is clear HEART score 1 based on age D-dimer is within normal range Remainder basic laboratory studies are otherwise unremarkable TSH obtained from triage WNL 3 hr EKG without interval changes 3 hr Troponin also undetectable. Very low suspicion for ACS at this time Patient was reporting neck pain that has been ongoing and constant for the last 1 year. Described as a tension. CT of the cervical spine was unremarkable. Discussed overall reassuring workup with patient. Feel she is safe for discharge home at this time. Recommended she follow-up with PCP as an outpatient for further evaluation. Discussed possibility of musculoskeletal etiology, continued management of such. Discussed strict return precautions. Patient in agreement with plan. Discharged in stable condition. <Destinee Bruno PA-C - Last Filed: 06/02/25 18:03> Medical Records Data Attestation: I reviewed the patient's medical records. <JARAD Diaz Last Filed: 06/02/25 18:03> Lab Data Attestation: I reviewed the patient's lab results. <Desitnee Bruno PA-C - Last Filed: 06/02/25 18:03> Result diagrams: 06/02/25 12:21 06/02/25 12:21 <JARAD Sweeney Last Filed: 06/02/25 19:21> Labs: Lab Results 06/02/25 06/02/25 Range/Units 12:21 16:39 WBC 5.4 (4.5-10.0) K/mm3 RBC 4.70 (4.2-5.4) M/mm3 Hgb 14.0 (12.0-15.0) g/dL Hct 42.4 (37.0-47.0) % MCV 90.2 (80-100) fl MCH 29.8 (26-34) pg MCHC 33.0 (32-36) g/dl RDW 12.2 (11.5-14.5) % Plt Count 229 (150-375) k/mm3 MPV 10.0 (7.4-10.4) fl Immature Gran % (Auto) 0.4 (0-0.5) % Neut % (Auto) 58.9 (45.5-73.1) % Lymph % (Auto) 30.3 (18.3-44.2) % [place] % (Auto) 7.8 (2.6-8.5) % Eos % (Auto) 2.0 (0-4.4) % Baso % (Auto) 0.6 (0.2-1.2) % Lymph # (Auto) 1.63 (0.9-3.2) K/mm3 [place] # (Auto) 0.4 (0.1-0.6) K/mm3 Eos # (Auto) 0.1 (0-0.3) K/mm3 Baso # (Auto) 0.0 (0.0-0.1) K/mm3 Abs Immat Gran (auto) 0.02 (0.00-0.031) K/mm3 Absolute Neuts (auto) 3.2 (1.3-6.7) K/mm3 Absolute Nucleated RBC 0.000 (0.0-0.012) K/mm3 Nucleated RBC % 0.0 (0.0-0.2) % PT 13.0 (11.1-14.7) Seconds INR 1.0 APTT 30.8 (22.3-36.8) Seconds D-Dimer < 0.27 (<0.48) ug/mL Sodium 139 (137-145) mmol/L Potassium 3.9 (3.4-5.0) mmol/L Chloride 104 (98-107) mmol/L Carbon Dioxide 30 (22-30) mmol/L Anion Gap 5 (4-12) mmol/L BUN 12 (7-17) mg/dL Creatinine 0.92 (0.7-1.0) mg/dL Estim Creat Clear Calc 60 ml/min Estimated GFR > 60 (59 - ) Glucose 76 (65-110) mg/dL Calcium 8.9 (8.4-10.2) mg/dL Total Bilirubin 0.3 (0.2-1.3) mg/dL AST 22 (14-36) U/L ALT 14 (6-35) U/L Alkaline Phosphatase 56 (38-126) U/L Troponin I < 0.012 < 0.012 (0.000-0.034) ng/mL Total Protein 7.4 (6.3-8.2) g/dL Albumin 4.2 (3.5-5.1) g/dL Lipase 69 (23-300) U/L TSH (Reflex) 1.710 (0.465-4.68) uIU/mL <Aimee Nichole PA-C - Last Filed: 06/02/25 19:21> Lab Results 06/02/25 06/02/25 Range/Units 12:21 16:39 WBC 5.4 (4.5-10.0) K/mm3 RBC 4.70 (4.2-5.4) M/mm3 Hgb 14.0 (12.0-15.0) g/dL Hct 42.4 (37.0-47.0) % MCV 90.2 (80-100) fl MCH 29.8 (26-34) pg MCHC 33.0 (32-36) g/dl RDW 12.2 (11.5-14.5) % Plt Count 229 (150-375) k/mm3 MPV 10.0 (7.4-10.4) fl Immature Gran % (Auto) 0.4 (0-0.5) % Neut % (Auto) 58.9 (45.5-73.1) % Lymph % (Auto) 30.3 (18.3-44.2) % [place] % (Auto) 7.8 (2.6-8.5) % Eos % (Auto) 2.0 (0-4.4) % Baso % (Auto) 0.6 (0.2-1.2) % Lymph # (Auto) 1.63 (0.9-3.2) K/mm3 [place] # (Auto) 0.4 (0.1-0.6) K/mm3 Eos # (Auto) 0.1 (0-0.3) K/mm3 Baso # (Auto) 0.0 (0.0-0.1) K/mm3 Abs Immat Gran (auto) 0.02 (0.00-0.031) K/mm3 Absolute Neuts (auto) 3.2 (1.3-6.7) K/mm3 Absolute Nucleated RBC 0.000 (0.0-0.012) K/mm3 Nucleated RBC % 0.0 (0.0-0.2) % PT 13.0 (11.1-14.7) Seconds INR 1.0 APTT 30.8 (22.3-36.8) Seconds D-Dimer < 0.27 (<0.48) ug/mL Sodium 139 (137-145) mmol/L Potassium 3.9 (3.4-5.0) mmol/L Chloride 104 (98-107) mmol/L Carbon Dioxide 30 (22-30) mmol/L Anion Gap 5 (4-12) mmol/L BUN 12 (7-17) mg/dL Creatinine 0.92 (0.7-1.0) mg/dL Estim Creat Clear Calc 60 ml/min Estimated GFR > 60 (59 - ) Glucose 76 (65-110) mg/dL Calcium 8.9 (8.4-10.2) mg/dL Total Bilirubin 0.3 (0.2-1.3) mg/dL AST 22 (14-36) U/L ALT 14 (6-35) U/L Alkaline Phosphatase 56 (38-126) U/L Troponin I < 0.012 < 0.012 (0.000-0.034) ng/mL Total Protein 7.4 (6.3-8.2) g/dL Albumin 4.2 (3.5-5.1) g/dL Lipase 69 (23-300) U/L TSH (Reflex) 1.710 (0.465-4.68) uIU/mL <Destinee Bruno PA-C - Last Filed: 06/02/25 18:03> Imaging Data Attestation: I personally reviewed and interpreted this imaging study as follows: < Destinee Bruno PA-C - Last Filed: 06/02/25 18:03> Radiologist's impression: ITS Impressions Chest X-Ray 06/02/25 13:16 Impression: No acute cardiopulmonary abnormality. Cervical Spine CT 06/02/25 14:14 Impression: No acute abnormality. <JARAD Diaz Last Filed: 06/02/25 18:03> ECG Data EKG #1: Attestation: I personally reviewed and interpreted this ECG as follows: <Destinee Bruno PA-C - Last Filed: 06/02/25 18:03> ECG completion date: 06/02/25 <JARAD Diaz Last Filed: 06/02/25 18:03> ECG completion time: 12:18 <JARAD Diaz Last Filed: 06/02/25 18:03> EKG Interpretation: normal rate (82), sinus rhythm, non-specific ST changes and RBBB (Incomplete) <JARAD Diaz Last Filed: 06/02/25 18:03> Discharge Plan Discharge Clinical Impression: Atypical chest pain, Chronic neck pain <JARAD Sweeney Last Filed: 06/02/25 19:21> Patient Disposition: Home <JARAD Sweeney Last Filed: 06/02/25 19:21> Condition: Stable <JARAD Sweeney Last Filed: 06/02/25 19:21> Instructions: Antibiotic Form, Chest Pain (ED), Cervical Sprain (ED) <JARAD Sweeney Last Filed: 06/02/25 19:21> Additional Instructions: Your workup here was reassuring. There is no evidence of injury to your heart. Recommend continuing Tylenol/ibuprofen as needed for pain. Recommend close follow-up with your primary care doctor for further evaluation. Return to the ED if you experience worsening or severe chest pain, difficulty breathing, severe neck pain, numbness or weakness of arms, pain or swelling in your legs, severe dizziness, passing out, unable to keep down food or drink, or any other symptoms of concern. <Aimee Nichole PA-C - Last Filed: 06/02/25 19:21> Patient Language: Nauruan <JARAD Sweeeny Last Filed: 06/02/25 19:21> Prescriptions: No Action dextroamphetamine-amphetamine 20 mg capsule,extended release 24hr PO docusate sodium [Colace] 100 mg capsule 100 mg PO DAILY Qty: 10 0RF omeprazole 20 mg capsule,delayed release(DR/EC) 20 mg PO DAILY Qty: 14 0RF pantoprazole [Protonix] 40 mg tablet,delayed release (DR/EC) 40 mg PO BID Qty: 28 0RF <JARAD Sweeney Last Filed: 06/02/25 19:21> Follow-up/Referrals: UNKNOWN,DOCTOR [Primary Care Provider] <JARAD Sweeney Last Filed: 06/02/25 19:21> Time of Disposition: 17:53 <Aimee Nichole PA-C - Last Filed: 06/02/25 19:21> 17:53 <JARAD Diaz Last Filed: 06/02/25 18:03> Quality HEART score for chest pain patients History: slightly suspicious <Destinee Bruno PA-C - Last Filed: 06/02/25 18:03> ECG: normal <JARAD Diaz Last Filed: 06/02/25 18:03> Age: > 45 and < 65 years <JARAD Diaz Last Filed: 06/02/25 18:03> Risk factors: no risk factors known <JARAD Diaz Last Filed: 06/02/25 18:03> Troponin: < or = to 1x normal limit <JARAD Diaz Last Filed: 06/02/25 18:03> Heart score: 1 <JARAD Sweeney Last Filed: 06/02/25 19:21> 1 <JARAD Diaz Last Filed: 06/02/25 18:03>
--- OUTSIDE RECORDS SUMMARY | 2025-06-02 13:48 | XMS_ITS | Clinical Summary ---
Author Organization [facility] Address [address] [place] [id number] Care Team Providers Care Tearer Name Role Phone No, Physician Primary Care Provider [phone] Allergies Active Allergy Reactions Criticality Noted Date Comments Ciprofloxacin Rash Medium 10/22/2022 Medications lidocaine viscous (XYLOCAINE) 2 % solution Apply 5 mL to the mouth or throat every 3 (three) hours 100 mL 3 Active HYDROcodone-acetami nophen (NORCO) 5-325 mg per tabletIndications:P ain Take 1 tablet by mouth every 6 (six) hours as needed for pain 10 tablet 3 Active chlorhexidine (PERIDEX) 0.12 % solution Apply 15 mL to the mouth or throat 2 (two) times a day 120 mL 3 Active ketorolac (TORADOL) 10 mg tablet Take 1 tablet (10 mg total) by mouth every 6 (six) hours as needed for pain 30 tablet 4 Active ondansetron ODT (ZOFRAN-ODT) 4 mg disintegrating tablet Take 1 tablet (4 mg total) by mouth every 8 (eight) hours as needed for nausea or vomiting 20 tablet 4 Active Medical History Medical History Date Comments Thyroid disease Social History Tobacco Use Types Packs/Day Years Used Date Smoking Tobacco: Never Assessed Personal Safety Answer Date Recorded Have you ever been in or are you currently in a harmful physical or emotional relationship or is someone making you feel afraid or unsafe? Denies 08/05/2024 Comments No Sex and Gender Information Value Date Recorded Sex Assigned at Not on file Legal Sex Female 6:26 PM [employer] Gender Identity Not on file Sexual Orientation Not on file Obstetrics History Last Filed Vital Signs Vital Sign Reading Time Taken Comments Blood Pressure 130/81 08/06/2024 12:37 AM [employer] Pulse 59 08/06/2024 12:37 AM [employer] Temperature 36.9 C (98.4 F) 08/05/2024 7:10 PM [employer] Respiratory Rate 18 08/06/2024 12:37 AM [employer] Oxygen Saturation 100% 08/06/2024 12:37 AM [employer] Inhaled Oxygen Concentration - - Weight 72.6 kg (160 lb) 08/05/2024 7:10 PM [employer] Height 167.6 cm (5' 6) 08/05/2024 7:10 PM [employer] Body Mass Index 25.82 08/05/2024 7:10 PM [employer] Plan of Treatment Health Maintenance Due Date Last Done Comments Breast Cancer Screening-Mammogram 1974 Cervical Cancer Screening 1974 Colon Cancer Screening-Colonoscopy 1974 Depression Screening 1974 Hepatitis C Screening 1974 DTaP/Tdap/Td Vaccine (1 - Tdap) 1985 Hepatitis B Screening 1992 Regular Well Visit/Exam 18-64 1992 Zoster Vaccine (1 of 2) 2024 Covid-19 Vaccine (3 - 2024-2 6 season) 2025 07/11/2021, 06/20/2021 Influenza Vaccine (#1) 2025 Pneumococcal vaccine <65 Aged Out No longer eligible based on patient's age to complete this topic Insurance [address] [place] [address] KAYLEE ALLEGIANCE KAYLEE ALLEGIANCE Care Teams Tearer Relationship Specialty Start Date End Date No, Physician PCP - General 10/22/22
--- OUTSIDE RECORDS SUMMARY | 2025-06-02 13:48 | XMS_ITS | Clinical Summary ---
Author Organization [facility] Diurnal CEL[place] Address [address] [address] Care Team Providers Care Glazier Metal Furniture Name Role Phone Vanessa Carter MD Primary Care Provider [phone] Allergies Active Allergy Reactions Criticality Noted Date Comments Ciprofloxacin Anaphylaxis High 05/20/2023 Rash, vision loss, shortness of breath, Nitrofurantoin Monohyd/M-Cryst Rash Low 05/20/2023 Medications amphetamine-dextro amphetamine (ADDERALL XR) 20 mg Extended Release 24 hour capsule Take 20 mg by mouth 2 times daily. 03/31/20 23 Active DULoxetine (Cymbalta) 30 mg Capsule, Delayed Release(E.C.)Indic ations:Neck pain, chronic Take 1 Capsule (30 mg) by mouth see administration instructions. 60 Capsule 1 01/26/20 25 Active levothyroxine 75 mcg tabletIndications: Acquired hypothyroidism Take 1 Tablet (75 mcg) by mouth daily in the morning. 90 Tablet 1 02/05/20 25 Active Active Problems Problem Noted Date Diagnosed Date Thrombocytopenia 04/15/2024 Diastolic dysfunction - repeat echo 11/2024 Overview (12/16/2023): EF 55%. Mild Left diastolic dysfunction. L atrial enlargement. Repeat Echo November 2024. Generalized anxiety disorder 08/07/2023 Attention deficit hyperactiv ity disorder (ADHD), combined type 08/07/2023 Overview (08/07/2023): Treated by Dr. Amadalla, psychiatrist. Low serum iron without anemia 08/07/2023 Restless legs 08/07/2023 Overview (08/07/2023): Negative anemia check 07/2023. Iron low. Start MVI w iron daily. Chronic neck pain with normal neurological exami nation 08/05/2023 Vitamin D deficiency 06/26/2023 Hypoglycemia 06/26/2023 Acquired hypothyroidism 05/20/2023 Resolved Problems Problem Noted Date Diagnosed Date Resolved Date Chest wall pain 05/20/2023 08/07/2023 Encounters Date Type Department Care Team Description 05/04/2025 External Device Data STL ABSTRACTION Provider, Abstract 05/03/2025 External Device Data STL ABSTRACTION Provider, Abstract 03/22/2025 External Device Data STL ABSTRACTION Provider, Abstract 03/02/2025 External Device Data STL ABSTRACTION Provider, Abstract from Last 3 Months Family History Medical History Relation Name Comments Stroke Maternal Grandfather Ovarian Cancer Maternal Grandmother 50's Breast Cancer Mother s/p lumpectomy & RT. BRCA gene negative Alzheimer's Disease Paternal Grandfather Colon Cancer Neg Hx Relation Name Status Comments Brother Alive Daughter 1 Alive Daughter 2 Alive Father Alive Maternal Grandfather Maternal Grandmother Mother Alive Paternal Grandfather Paternal Grandmother Sister Alive Son 1 Alive Son 2 Alive Son 3 Alive Social History Tobacco Use Types Packs/Day Years Used Date Smoking Tobacco: Never Tobacco Cessation:Counseling Given: Not Answered Alcohol Use Standard Drinks/Week Comments Never 0 (1 standard drink = 0.6 oz pur e alcohol) Comments No Sex and Gender Information Value Date Recorded Sex Assigned at Female 05/19/2023 6:33 PM CDT Legal Sex Female 3:22 PM CDT Gender Identity Female 05/19/2023 6:33 PM CDT Sexual Orientation Straight 05/09/2024 10 :27 AM CDT Last Filed Vital Signs Vital Sign Reading Time Taken Comments Blood Pressure 136/88 01/25/2025 8:32 AM CDT Pulse 66 01/25/2025 8:32 AM CDT Temperature 36.4 C (97.6 F) 05/10/2024 1:04 PM CDT Respiratory Rate 18 01/25/2025 8:32 AM CDT Oxygen Saturation 97% 01/25/2025 8:32 AM CDT Inhaled Oxygen Concentration - - Weight 74.7 kg (164 lb 9.6 oz) 01/25/2025 8:32 A M CDT Height 167.6 cm (5' 6) 01/25/2025 8:32 AM CDT Body Mass Index 26.57 01/25/2025 8:32 AM CDT Plan of Treatment Health Maintenance Due Date Last Done Comments DTAP/TDAP/TD VACCINES (1 - Tdap) 1993 HEPATITIS B VACCINES (1 of 3 - 19+ 3-dose series) 09/19 COLORECTAL SCREENING 2019 Colorectal Cancer Screening 2019 FIT-DNA Q 3 years 2019 FIT/FOBT Q 1 year 2019 Flex Sig/CT Colonography Q 5 years 2019 BREAST CANCER SCREENING 06/13/2024 06/13/2023 Preventative Visit- Commercial 08/18/2024 05/10/2024 ZOSTER VACCINE (1 of 2) 2024 INFLUENZA VACCINE (#1) 2025 Pre-Diabetes and Diabetes Screening 08/05/202608/05 PAP SMEAR 05/10/2027 05/10/2024 CERVICAL CANCER SCREENING 05/10/2029 HPV/Cotest (21-29) 05/10/2029 05/10/2024 HPV/Cotest (30-65) 05/10/2029 05/10/2024 Procedures Procedure Name Priority Date/Time Associated Diagnosis Comments CERV/VAG CYTO AGE BASED SCREEN PAP Routine 05/10/2024 2:04 PM CDT Well woman exam with routine gynecological exam Screening for cervical cancer Screening for human papillomavirus (HPV) HEMOGLOBIN A1C Routine 08/05/2023 2:59 PM MANAGER TALENT Hypoglycemia MAMMO 3D ANNE MARIE SCREEN BILAT W OR WO CAD Routine 06/13/2023 3:40 PM CDT Encounter for screening for malignant neoplasm of breast, unspecified screening modality from Last 3 Months or Most Recently Relevant to Health Maintenance Results * CERV/VAG CYTO AGE BASED SCREEN PAP (05/10/2024 2:04 PM CDT) COMMENT (PAP): [email or web address] Comment: This order for age-based cervical cancer and STI screening follows ACOG guidelines(PB 168, 140, QLW262). See individual assays for performing site location. CLINICAL INFORMATION [facility] Comment:None given LAST MENSTRUAL PERIOD [email or web address] Comment:03/21/2024 PREV PAP: [email or web address] [email or web address] Comment:NONE GIVEN PREV BX: [email or web address] [email or web address] Comment:NONE GIVEN SOURCE [email or web address] Comment:Endocervix ADEQUACY: [facility] Comment: Satisfactory for evaluation. Endocervical/transformation zone component absent. PAP INTERP [email or web address] [email or web address] Comment: Cytology Results: Negative for intraepithelial lesion or malignancy. COMMENT (PAP TEST) [facility] [place] Comment: This Pap test has been evaluated with computer assisted technology. ADMINISTRATIVE PROGRAM SPECIALIST: Familia est [facility] [place] Comment: BES, CT(ASCP) CT screening location: [place] [address] [place] [address] EXPLANATORY NOTE [employer] [place] Comment: EXPLANATORY NOTE: The Pap is a screening test for cervical cancer. It is not a diagnostic test and is subject to false negative and false positive results. It is most reliable when a satisfactory sample, regularly obtained, is submitted with relevant clinical findings and history, and when the Pap result is evaluated along with historic and current clinical information. HPV E6/E7 Not Detected Not Detected [employer] Comment: Methodology: Injection Maintenance Technician-Mediated Amplification This assay detects E6/E7 viral messenger RNA (mRNA) from 14 high-risk HPV types (16,18,31,33,35,39,45,51,52,56,58,59,66,68). Cervical sources are required for HPV testing. If a vaginal source from a patient who has had a total hysterectomy with removal of cervix was submitted, please contact the testing laboratory for alternative testing options. For additional information, please refer to http://education.Vector Fabrics/faq/RQY918i3 (This link if provided for information/ educational purposes only.) Test Performed at: [facility] [address] [place] [address] Juan Luis PINEDA Genital SWAB OF ENDOCERVIX / Unknown 05/10/2024 2:04 PM CDT 05/11/2024 12:22 AM CDT us Keyanna Wang MALTSTER PATHOLOGY/CYTOLOGY ORDERABLES F inal Result Performing Organization Address [facility] Co de Phone Number [facility] [phone] [facility] [address] [place] [address] * HEMOGLOBIN A1C (08/05/2023 2:59 PM MANAGER TALENT) HEMOGLOBIN A1C 5.2 <5.7 % of total Hgb [facility] Comment: For the purpose of screening for the presence of diabetes: <5.7% Consistent with the absence of diabetes 5.7-6.4% Consistent with increased risk for diabetes (prediabetes) > or =6.5% Consistent with diabetes This assay result is consistent with a decreased risk of diabetes. Currently, no consensus exists regarding use of hemoglobin A1c for diagnosis of diabetes in children. According to [place] [employer] (ADA) guidelines, hemoglobin A1c <7.0% represents optimal control in non- diabetic patients. Different metrics may apply to specific patient populations. Standards of Medical Care in Diabetes(ADA). ESTIMATED AVERAGE GLUCOSE (MG/DL) 103 mg/dL [email or web address] ESTIMATED AVERAGE GLUCOSE (MMOL/L) 5.7 mmol/L [facility] Comment: Test Performed at: [facility] [address] [place] [address] Juan Luis Abdi MD Blood 08/05/2023 2:59 PM MANAGER TALENT 08/06/2023 4:15 AM MANAGER TALENT us Angela Lawson ANP CHEMISTRY ORDERABLES Final R esult Performing Organization Address City/[facility]/ZIP Co de Phone Number [facility] [phone] [facility] [address] [place] [address] * MAMMO SCRN BILAT 3D ANNE MARIE W OR WO CAD (06/13/2023 3:40 PM CDT) Anatomical Region Laterality Modality Breast Bilateral Mammography 06/13/2023 3:43 PM CDT Impressions 06/13/2023 9:32 PM CDT IMPRESSION: No mammographic evidence of malignancy. ASSESSMENT: Negative, BI-RADS 1. RECOMMENDATIONS: Annual screening. The above findings should be correlated with physical examination. A relatively nonspecific study should not preclude additional evaluation if suspicious findings are present clinically. An [employer] certified facility. DICTATION LOCATION: [facility] Narrative 06/13/2023 9:32 PM CDT MAMMOGRAMS SCREENING DIGITAL BILATERAL WITH CAD AND 3D TOMOSYNTHESIS DATE: 06/13/2023 3:40 PM PRIOR: None, baseline HISTORY: Screening. TECHNIQUE: Bilateral digital craniocaudad (CC) and mediolateral oblique (MLO) views. 3D Tomosynthesis. CAD. DENSITY: Heterogeneously dense FINDINGS: No suspicious finding of either breast. Procedure Note Sky Modi MD - 06/13/2023 MAMMOGRAMS SCREENING DIGITAL BILATERAL WITH CAD AND 3D TOMOSYNTHESIS DATE: 06/13/2023 3:40 PM PRIOR: None, baseline HISTORY: Screening. TECHNIQUE: Bilateral digital craniocaudad (CC) and mediolateral oblique (MLO) views. 3D Tomosynthesis. CAD. DENSITY: Heterogeneously dense FINDINGS: No suspicious finding of either breast. IMPRESSION: No mammographic evidence of malignancy. ASSESSMENT: Negative, BI-RADS 1. RECOMMENDATIONS: Annual screening. The above findings should be correlated with physical examination. A relatively nonspecific study should not preclude additional evaluation if suspicious findings are present clinically. An [employer] certified facility. DICTATION LOCATION: [facility] Rosaline Luna MD MAMMO ORDERABLES Final Result from Last 3 Months or Most Recently Relevant to Health Maintenance Insurance [address] [place] [address] ALLEGIANCE OPEN ACCESS OPEN ACCESS Care Teams Glazier Metal Furniture Relationship Specialty Start Date End Date Vanessa Carter MD [address] [place] [address] [place] [address] PCP - General Internal Medicine 02/03/24
--- OUTSIDE RECORDS SUMMARY | 2025-06-02 13:48 | XMS_ITS | Clinical Summary ---
Author Organization [facility] Address [address] [place] [address] Phone Care Team Providers Care Programmer Developer Name Role Phone Provider, None Primary Care Provider Unavailabl e Social History Tobacco Use Types Packs/Day Years Used Date Smoking Tobacco: Never Assessed Comments Unknown Sex and Gender Information Value Date Recorded Sex Assigned at Not on file Legal Sex Female 9:42 AM HEM MARKER Gender Identity Not on file Sexual Orientation Not on file Plan of Treatment Health Maintenance Due Date Last Done Comments Hepatitis C Virus (HCV) Screening 1974 TdaP Immunization 1974 Hepatitis B Immunization (1 of 3 - 19+ 3-dose series) 1993 Pap Smear 1995 Cervical Cancer Screening (CCS) 2004 HPV/Cotest 2004 Cologuard 2019 Colonoscopy 2019 Colorectal Cancer Screening 2019 Immunochemical Fecal Occult Blood 2019 Pneumococcal Immunization (5 0+ years) (1 of 1 - PCV) 2024 Zoster Immunization (1 of 2) 2024 Influenza Immunization (#1) 2025 SARS-COV-2 Immunization (3 - 2024- season) 2025 07/11/2021, 06/20/2021 Respiratory Syncytial Virus (RSV) Immunization (Adult) (1 - 1-dose 75+ series) 2049 Human Papillomavirus (HPV) Immunization Aged Out No longer eligible b ased on patient's age to complete this topic Meningococcal Immunization (ACWY) Aged Out No longer eligible b ased on patient's age to complete this topic Rotavirus Immunization Aged Out No lo nger eligible based on patient's age to complete this topic Insurance MEDICAID AETNA [facility] Care Teams Programmer Developer Relationship Specialty Start Date End Date Provider, None [place] PCP - General 09/17/18
--- NOTE | 2025-06-02 16:32 | ECG_ITS ---
Test Date: 2025-06-02 16:45:20 Measurements Intervals [place] Rate: 66 P: 48 LA: 155 QRS: -19 QRSD: 105 T: 31 QT: 389 QTc: 410 Interpretive Statements SINUS RHYTHM INCOMPLETE RIGHT BUNDLE BRANCH BLOCK DELAYED PRECORDIAL R/S TRANSITION LOW QRS VOLTAGE IN PRECORDIAL LEADS BORDERLINE T WAVE ABNORMALITY- ANTERIOR LEADS BASELINE ARTIFACT- I, II, AVR BORDERLINE ECG Compared to ECG 06/02/2025 12:18:39 NO SIGNIFICANT CHANGE Electronically Signed On 06-02-2025 17:12:17 CDT by Luis Miguel Ambriz D.O.
[2025-06-02 16:42] VITALS: BP 123/53; PULSE 66; RESP 13; O2SAT 98
[2025-06-02 17:12] LABS: Troponin I < 0.012 ng/mL (0.000-0.034)
[2025-06-02 18:00] LABS: Thyroid Stimulating Hormone Reflex 1.710 uIU/mL (0.465-4.68)
--- OUTSIDE RECORDS SUMMARY | 2025-06-02 18:02 | XMS_ITS | Clinical Summary ---
Author Organization [facility] [employer] [place] Address [address] [address] Care Team Providers Care Vest Backer Name Role Phone Vanessa Carter MD Primary Care Provider [phone] Allergies Active Allergy Reactions Criticality Noted Date [...] (HPV) HEMOGLOBIN A1C Routine 08/05/2023 2:59 PM S IRON WORKER Hypoglycemia MAMMO 3D ANNE MARIE SCREEN BILAT W OR WO CAD Routine 06/13/2023 3:40 PM CDT Encounter for screening for malignant neoplasm of breast, unspecified screening modality from Last 3 Months or Most Recently Relevant to Health Maintenance Results * CERV/VAG CYTO AGE BASED SCREEN PAP (05/10/2024 2:04 PM CDT) COMMENT (PAP): [facility] [place] Comment: This order for age-based cervical cancer and STI screening follows ACOG guidelines(PB 168, 140, AKV847). See individual assays for performing site location. CLINICAL INFORMATION [employer] Comment:None given LAST MENSTRUAL PERIOD [facility] [place] Comment:03/21/2024 PREV PAP: [facility] [place] Comment:NONE GIVEN PREV BX: [facility] [place] Comment:NONE GIVEN SOURCE [facility] [place] Comment:Endocervix ADEQUACY: [employer] Comment: Satisfactory for evaluation. Endocervical/transformation zone component absent. PAP INTERP [facility] [place] Comment: Cytology Results: Negative for intraepithelial lesion or malignancy. COMMENT (PAP TEST) [facility] [place] Comment: This Pap test has been evaluated with computer assisted technology. CLOTH COVERED HELMET PULLER: Familia [facility] [place] Comment: BES, CT(ASCP) CT screening location: [place] [address] [place] [address] EXPLANATORY NOTE Que [employer] [place] Comment: EXPLANATORY NOTE: The Pap is a [...] information. HPV E6/E7 Not Detected Not Detected [employer] Comment: Methodology: Natural Resources Extension Educator-Mediated Amplification This assay detects E6/E7 viral messenger RNA (mRNA) from 14 high-risk HPV types (16,18,31,33,35,39,45,51,52,56,58,59,66,68). Cervical sources are required for HPV testing. If a vaginal source from a patient who has had a total hysterectomy with removal of cervix was submitted, please contact the testing laboratory for alternative testing options. For additional information, please refer to http://education.Grid Mobile/faq/HOB818j7 (This link if provided for information/ educational purposes only.) Test Performed at: [facility] [address] [place] [address] Juan Luis PINEDA Genital SWAB OF ENDOCERVIX / Unknown 05/10/2024 2:04 PM CDT 05/11/2024 12:22 AM CDT us Keyanna aWng COMMUNITY SERVICES COORDINATOR PATHOLOGY/CYTOLOGY ORDERABLES F inal Result Performing Organization Address [facility] Co de Phone Number [facility] [phone] [facility] [address] [place] [address] * HEMOGLOBIN A1C (08/05/2023 2:59 PM S IRON WORKER) HEMOGLOBIN A1C 5.2 <5.7 % of total Hgb [facility] Comment: For the purpose of screening for the presence of diabetes: <5.7% Consistent with the absence of diabetes 5.7-6.4% Consistent with increased risk for diabetes (prediabetes) > or =6.5% Consistent with diabetes This assay result is consistent with a decreased risk of diabetes. Currently, no consensus exists regarding use of hemoglobin A1c for diagnosis of diabetes in children. According to [place] [employer] (ADA) guidelines, hemoglobin A1c <7.0% represents optimal control in non- diabetic patients. Different metrics may apply to specific patient populations. Standards of Medical Care in Diabetes(ADA). ESTIMATED AVERAGE GLUCOSE (MG/DL) 103 mg/dL [facility] ESTIMATED AVERAGE GLUCOSE (MMOL/L) 5.7 mmol/L [employer] Comment: Test Performed at: [facility] [address] [place] [address] Juan Luis Abdi MD Blood 08/05/2023 2:59 PM S IRON WORKER 08/06/2023 4:15 AM S IRON WORKER us Angela Lawson ANP CHEMISTRY ORDERABLES Final R esult Performing Organization Address City/[facility]/ZIP Co de Phone Number [facility] [phone] [email or web address] [address] [place] [address] * MAMMO SCRN BILAT 3D ANNE MARIE [...] if suspicious findings are present clinically. An [employer] certified facility. DICTATION LOCATION: [facility] Narrative 06/13/2023 9:32 PM CDT MAMMOGRAMS SCREENING [...] if suspicious findings are present clinically. An [employer] certified facility. DICTATION LOCATION: [facility] Rosaline Luna MD MAMMO ORDERABLES Final Result from Last 3 Months or Most Recently Relevant to Health Maintenance Insurance [address] [place] [address] ALLEGIANCE OPEN ACCESS OPEN ACCESS Care Teams Vest Backer Relationship Specialty Start Date End Date Vanessa Carter MD [address] [place] [address] [place] [address] PCP - General Internal Medicine 02/03/24
--- OUTSIDE RECORDS SUMMARY | 2025-06-02 18:02 | XMS_ITS | Clinical Summary ---
Author Organization [facility] Address [address] [place] [address] Phone Care Team Providers Care Cocoa Powder Mixer Operator Name Role Phone Provider, None Primary Care Provider Unavailabl e Social History Tobacco Use Types Packs/Day Years Used Date Smoking Tobacco: Never Assessed Comments Unknown Sex and Gender Information Value Date Recorded Sex Assigned at Not on file Legal Sex Female 9:42 AM CALCULATING MACHINE OPERATOR Gender Identity Not on file Sexual Orientation [...] to complete this topic Insurance MEDICAID AETNA [facility] Care Teams Cocoa Powder Mixer Operator Relationship Specialty Start Date End Date Provider, None [place] PCP - General 09/17/18
--- OUTSIDE RECORDS SUMMARY | 2025-06-02 18:02 | XMS_ITS | Clinical Summary ---
Author Organization [facility] Address [address] [place] [address] Care Team Providers Care Aircraft Electrician Name Role Phone No, Physician Primary Care Provider [phone] Allergies Active Allergy Reactions Criticality Noted Date [...] on file Legal Sex Female 6:26 PM CEMENT GRINDING MILL OPERATOR Gender Identity Not on file Sexual Orientation Not on file Obstetrics History Last Filed Vital Signs Vital Sign Reading Time Taken Comments Blood Pressure 130/81 08/06/2024 12:37 AM CEMENT GRINDING MILL OPERATOR Pulse 59 08/06/2024 12:37 AM CEMENT GRINDING MILL OPERATOR Temperature 36.9 C (98.4 F) 08/05/2024 7:10 PM CEMENT GRINDING MILL OPERATOR Respiratory Rate 18 08/06/2024 12:37 AM CEMENT GRINDING MILL OPERATOR Oxygen Saturation 100% 08/06/2024 12:37 AM CEMENT GRINDING MILL OPERATOR Inhaled Oxygen Concentration - - Weight 72.6 kg (160 lb) 08/05/2024 7:10 PM CEMENT GRINDING MILL OPERATOR Height 167.6 cm (5' 6) 08/05/2024 7:10 PM CEMENT GRINDING MILL OPERATOR Body Mass Index 25.82 08/05/2024 7:10 PM CEMENT GRINDING MILL OPERATOR Plan of Treatment Health Maintenance Due Date [...] complete this topic Insurance [address] [place] [address] KAYLEE ALLEGIANCE KAYLEE ALLEGIANCE Care Teams Aircraft Electrician Relationship Specialty Start Date End Date No, Physician PCP - General 10/22/22
[2025-06-02] MEDS: IBUPROFEN 600 MG TABLET PO (18:16)
== END 2025-06-02 18:35 | disposition home or self-care (01) ==
PROVIDERS: Physician Assistant; Preventive Medicine Aerospace Medicine; Emergency Provider Physician Assistant
DX: R07.89 Other chest pain (principal); M54.2 Cervicalgia; G89.29 Other chronic pain; F90.9 Attention-deficit hyperactivity disorder, unspecified type; Z79.899 Other long term (current) drug therapy; I45.10 Unspecified right bundle-branch block; R94.31 Abnormal electrocardiogram [ECG] [EKG]
CPT/HCPCS: 36415; 71046; 72125; 80053; 83690; 84443; 84484; 85025; 85380; 85610; 85730; 93005; 99284; A9270